=== PATIENT | female | born 1970 | race Two or more races ===

== ENCOUNTER 2024-06-01 17:59 | Emergency (ER) | payer MEDICAID, OTHER ==
[~2024-06-01] VITALS: Ht 160 cm; Wt 81.8 kg
[2024-06-01] MEDS: ACETAMINOPHEN 325 MG TAB PO ONE (19:00)
[2024-06-01 19:25] LABS: Chloride 110 mmol/L (98-107); Potassium 4.6 mmol/L (3.5-5.1); Sodium 142 mmol/L (136-145)
[2024-06-01 19:26] LABS: Anion Gap 5 (5-15); Carbon Dioxide 27 mmol/L (20-31)
[2024-06-01 19:31] LABS: BUN/Creatinine Ratio 19.5 (10.0-20.0); Blood Urea Nitrogen 16 mg/dL (9-23); Glucose 99 mg/dL (74-106)
[2024-06-01 19:32] LABS: Blood Alcohol 4.6 mg/dL (<10)
[2024-06-02 06:32] VITALS: PULSE 71; RESP 16; O2SAT 99
[2024-06-02 07:25] VITALS: BP 120/66; PULSE 75; RESP 15; TEMP 98.2; O2SAT 96
[2024-06-02] MEDS: DULoxetine HCL 30 MG CAP PO ONE (10:04)
[2024-06-02] MEDS: GABAPENTIN 300 MG CAP PO ONE (10:04)
[2024-06-02] MEDS ORDERED: LURA80TA2 PO (14:48)
[2024-06-02] MEDS ORDERED: DULO30CA PO (14:48)
[2024-06-02] MEDS ORDERED: BUSP15TA60 PO (14:48)
[2024-06-02] MEDS ORDERED: GABA-1250 PO (14:48)
== END 2024-06-02 14:45 | disposition home or self-care (01) ==
LOC: EDBD 17:59 → ER 18:13
DX: F32.9 Major depressive disorder, single episode, unspecified (principal); F41.9 Anxiety disorder, unspecified; F25.9 Schizoaffective disorder, unspecified; G62.9 Polyneuropathy, unspecified; F17.210 Nicotine dependence, cigarettes, uncomplicated; Z90.49 Acquired absence of other specified parts of digestive tract; Z98.890 Other specified postprocedural states
CPT/HCPCS: 36415; 80048; 80320